=== PATIENT | female | born 1960 | race Caucasian/White ===

== ENCOUNTER 2021-01-18 14:01 | Emergency (ER) | payer BC, MEDICAID ==
[~2021-01-18] VITALS: Ht 177.8 cm; Wt 102.3 kg
[2021-01-18 14:21] VITALS: TEMP 98.3
[2021-01-18 15:33] LABS: BASO % 0.3 % (0.0-2.0); EOS # 0.1 (0.0-0.7); EOS % 0.8 % (0-4.0); GRAN # 4.1 (1.4-6.5); GRAN % 67.6 % (42.2-75.2); HEMATOCRIT 41.6 % (37.0-47.0); HEMOGLOBIN 13.7 g/dl (12.5-16.0); LYMPH # 1.6 (1.2-3.4); LYMPH % 26.2 % (20.0-51.0); MEAN CELL VOLUME 91 fl (80.0-100.0); MEAN CORPUSCULAR HEMOGLOBIN 30 pg (27.0-31.0); MEAN CORPUSCULAR HGB CONC 33 g/dl (33.0-37.0); MEAN PLATELET VOLUME 8.2 fl (7.4-10.4); MONO # 0.3 (0.1-0.6); MONO % 4.8 % (1.7-9.3); PLATELET COUNT 304 K/mm3 (130-400); RED BLOOD COUNT 4.57 M/mm3 (4.10-5.30); REDCELL DISTRIBUTION WIDTH-CV 12.9 % (11.5-14.5)
[2021-01-18 15:33] LABS: COLLECTION METHOD CLEAN CATCH
[2021-01-18 15:39] LABS: MUCOUS Present /lpf; PH 5 (5-8); SQUAMOUS EPITHELIAL 0-2 /hpf; URINE APPEARANCE Clear; URINE BACTERIA None Seen /hpf; URINE BILIRUBIN Negative (NEGATIVE); URINE BLOOD Negative (NEGATIVE); URINE COLOR Yellow; URINE GLUCOSE Negative (NEGATIVE); URINE KETONE 1+ (NEGATIVE); URINE LEUKOCYTE ESTERASE Negative (NEGATIVE); URINE NITRATE Negative (NEGATIVE); URINE PROTEIN(semi-quant) Negative (NEGATIVE); URINE RBC 0-2 /hpf; URINE UROBILINOGEN Negative (NEGATIVE)
[2021-01-18 16:07] LABS: ALANINE AMINOTRANSFERASE 32 U/L (0-55); ALKALINE PHOSPHATASE 88 U/L (0-750); ANION GAP 11 mmol/L (7-16); AST,SGOT 25 U/L (5-34); BILIRUBIN,TOTAL 0.8 mg/dL (0.2-1.2); BLOOD UREA NITROGEN 15 mg/dL (10-20); CALCIUM 9.2 mg/dL (8.4-10.2); CARBON DIOXIDE 22 mmol/L (22-29); CHLORIDE 108 mmol/L (98-107); CREATININE, serum 0.84 mg/dL (0.57-1.11); GLUCOSE 88 mg/dL (70-99); POTASSIUM 3.9 mmol/L (3.5-4.5); SODIUM 141 mmol/L (136-145); TOTAL PROTEIN 7.5 gm/dL (6.2-8.1)
[2021-01-18 16:20] LABS: TROPONIN-I < 0.010 ng/mL (0.00-0.033)
[2021-01-18 16:30] VITALS: BP 196/100
[2021-01-18 16:45] VITALS: PULSE 65
[2021-01-18] MEDS ORDERED: MOBIC15 MG PO (18:56)
== END 2021-01-18 17:27 | disposition home or self-care (01) ==
LOC: COL.ER 14:01
PROVIDERS: Nurse Practitioner Primary Care
DX: I10 Essential (primary) hypertension (principal); R53.81 Other malaise
CPT/HCPCS: J2405; J7030

== ENCOUNTER 2024-01-20 15:48 | Emergency (ER) | payer MEDICAID ==
[~2024-01-20] VITALS: Ht 177.8 cm; Wt 113.6 kg
[~2024-01-20 15:48] MED LIST: MOBIC15 MG PO
[2024-01-20 15:53] VITALS: TEMP 98.5
[2024-01-20 16:16] LABS: COLLECTION METHOD CLEAN CATCH
[2024-01-20 16:24] LABS: URINE APPEARANCE CLEAR (CLEAR/HAZY); URINE BLOOD NEGATIVE (NEGATIVE); URINE COLOR YELLOW (YELLOW); URINE GLUCOSE NEGATIVE (NEGATIVE); URINE KETONE NEGATIVE (NEGATIVE); URINE NITRATE NEGATIVE (NEGATIVE); URINE PROTEIN(semi-quant) NEGATIVE (NEGATIVE); URINE UROBILINOGEN 0.2 E.U/dL (0.2-1.0)
[2024-01-20 17:19] LABS: BASO # 0.1 K/mm3 (0.0-0.2); BASO % 0.6 % (0.0-2.0); EOS # 0.1 K/mm3 (0.0-0.7); EOS % 0.7 % (0.0-4.0); GRAN # 6.2 K/mm3 (1.4-6.5); GRAN % 68.9 % (42.2-75.2); HEMATOCRIT 43.9 % (37.0-47.0); HEMOGLOBIN 14.8 g/dl (12.5-16.0); LYMPH # 2.2 K/mm3 (1.2-3.4); LYMPH % 24.2 % (20.0-51.0); MEAN CELL VOLUME 92 fl (80.0-100.0); MEAN CORPUSCULAR HEMOGLOBIN 31 pg (27-31); MEAN CORPUSCULAR HGB CONC 34 g/dl (33.0-37.0); MEAN PLATELET VOLUME 8.4 fl (7.4-10.4); MONO # 0.5 K/mm3 (0.1-0.6); MONO % 5.3 % (1.7-9.3); PLATELET COUNT 293 K/mm3 (130-400); RED BLOOD COUNT 4.76 M/mm3 (4.10-5.30); REDCELL DISTRIBUTION WIDTH-CV 13.2 % (11.5-14.5)
[2024-01-20 17:41] LABS: BILIRUBIN,TOTAL 0.9 mg/dL (0.2-1.2); C-REACTIVE PROTEIN 0.78 mg/dL (0.00-0.50); CALCIUM 10.2 mg/dL (8.4-10.2); CREATININE, serum 0.99 mg/dL (0.57-1.11); TOTAL PROTEIN 7.9 g/dl (6.2-8.1)
[2024-01-20] MEDS ORDERED: NS 100 ML IV ONE (18:21)
[2024-01-20] MEDS ORDERED: Iohexol 300 - 100 ML VIAL IV ONE (18:21)
[2024-01-20 19:20] VITALS: BP 163/103; PULSE 95
== END 2024-01-20 19:20 | disposition home or self-care (01) ==
LOC: COL.ER 15:48
PROVIDERS: Emergency Medicine; Nurse Practitioner
DX: R10.32 Left lower quadrant pain (principal); M54.9 Dorsalgia, unspecified; Z87.442 Personal history of urinary calculi
CPT/HCPCS: Q9967